=== PATIENT | female | born 1995 | race Two or more races ===

== ENCOUNTER 2017-03-02 08:40 | Emergency (ER) | payer OTHER ==
[~2017-03-02] VITALS: Ht 160 cm; Wt 57.2 kg
[2017-03-02 08:48] VITALS: BP 122/70
[2017-03-02 10:39] LABS: Urine Bilirubin Negative (Negative); Urine Color Yellow (Yellow); Urine Glucose Normal (Normal); Urine Mucus MODERATE (None Seen); Urine Nitrite Negative (Negative); Urine RBC 1 /hpf (0 - 4); Urine Squamous Epithelial Cell MOD /hpf (<5)
[2017-03-02 10:40] LABS: Urine Blood 1+ /uL (Negative); Urine Ketone 1+ (Negative)
[2017-03-02] MEDS ORDERED: KETOROLAC TROMETH 60MG/2ML VIAL IM ONE (12:30)
== END 2017-03-02 16:14 | disposition home or self-care (01) ==
LOC: ER 08:45 → EEVIPCON 08:45 → ER 16:14
DX: N39.0 Urinary tract infection, site not specified (principal); R31.9 Hematuria, unspecified; Z87.442 Personal history of urinary calculi
CPT/HCPCS: 74176; 81001; 81025; 96372; 99285; J1885